=== PATIENT | female | born 1950 | race Caucasian/White ===

== ENCOUNTER 2024-12-26 13:37 | Inpatient (IN) | payer OTHER ==
[~2024-12-26] VITALS: Ht 172.7 cm; Wt 62.2 kg
[2024-12-26 13:59] VITALS: BP 155/53
[2024-12-26 14:12] LABS: HEMATOCRIT 37.5 % (37.0-47.0); MEAN CELL VOLUME 89.9 fl (81.0-99.0); MEAN CORPUSCULAR HGB 30.7 pg (27.0-31.0); MEAN CORPUSCULAR HGB CONC 34.1 g/dl (33.0-37.0); MEAN PLATELET VOLUME 9.8 fl (9.6-12.3); PLATELET COUNT AUTOMATED 283 10*3/uL (130-400); RED BLOOD COUNT 4.17 10*6/uL (4.10-5.10); RED CELL DISTRI WIDTH 12.4 % (0-14.5); WHITE BLOOD COUNT 7.4 10*3/uL (4.8-10.8)
[2024-12-26 14:17] LABS: MANUAL DIFF REFLEX YES
[2024-12-26 14:27] LABS: ACT PARTIAL THROMBO TIME 33.6 SECONDS (20.0-32.1)
[2024-12-26 14:33] LABS: ALKALINE PHOSPHATASE 58 U/L (46-116); BUN 15 mg/dl (9-23); CHLORIDE 104 mmol/L (98-107); POTASSIUM 3.4 mmol/L (3.4-5.1); SGPT/ALT 15 U/L (5-49); TOTAL PROTEIN 7.1 gm/dL (6.0-8.0)
[2024-12-26 14:38] LABS: PLATELET SUFFICIENCY NORMAL (NORMAL); TOTAL CELLS COUNTED 100 #CELLS
[2024-12-26 14:39] LABS: BURR CELLS FEW; OVALOCYTES FEW
[2024-12-26 14:48] LABS: BILIRUBIN Negative (Negative); BLOOD Negative (Negative); CLARITY Cloudy (Clear); COLOR Yellow (Yellow); GLUCOSE Negative (Negative); KETONE 2+ (Negative); LEUKO ESTERASE Negative (Negative); NITRITE Negative (Negative); PH 5.5 (4.5-8.0); SPECIFIC GRAVITY 1.025 (1.001-1.030)
[2024-12-26 14:55] LABS: BACTERIA 2+; HYALINE CAST 0-2; RBC 0-2 rbc/hpf (0-2)
[2024-12-26] MEDS ORDERED: cefTRIAXone Sodium 1 GM/10 ML SYR IV ONE (16:25)
[2024-12-26] MEDS ORDERED: ASPIRIN 325 MG TAB PO ONE (18:25)
[2024-12-26] MEDS ORDERED: Magnesium Hydroxide 30 ML UDC PO PRN (18:30)
[2024-12-26] MEDS ORDERED: Ondansetron Hydrochloride 4 MG/2 ML VIAL IV PRN (18:30)
[2024-12-26] MEDS ORDERED: ACETAMINOPHEN 650 MG SUPP R PRN (18:30)
[2024-12-26] MEDS ORDERED: BISACODYL 5 MG TAB PO PRN (18:30)
[2024-12-26] MEDS ORDERED: ACETAMINOPHEN 325 MG TAB PO PRN (18:30)
[2024-12-26] MEDS ORDERED: BISACODYL 10 MG SUPP R PRN (18:30)
[2024-12-26] MEDS ORDERED: AMLODIPINE BESYL5 MG PO (18:49)
[2024-12-26] MEDS ORDERED: LEVOTHYROXINE75 MCG PO (18:53)
[2024-12-26] MEDS ORDERED: LOSARTAN-HCTZ1 EAC2 PO (18:53)
[2024-12-26] MEDS ORDERED: ASPIRIN ADULT L81 M1 PO (18:53)
[2024-12-26] MEDS ORDERED: ATORVASTATIN CA40 M1 PO (18:54)
[2024-12-26] MEDS ORDERED: SODIUM CHLORIDE 0.9% 100 ML BAG IV ONE (19:55)
[2024-12-26] MEDS ORDERED: IOHEXOL 350 MG/ML 100 ML VIAL IV ONE ×2 (19:55→20:15)
[2024-12-26] MEDS ORDERED: SODIUM CHLORIDE 0.9% 100 ML IV ONE (20:15)
[2024-12-26 20:38] VITALS: BP 149/76
[2024-12-27] VITALS (8 sets, daily range): BP systolic 128–150; BP diastolic 67–99
[2024-12-27] MEDS ORDERED: Pantoprazole Sodium 40 MG TAB PO SCH (06:00)
[2024-12-27 06:40] LABS: ACT PARTIAL THROMBO TIME 33.3 SECONDS (20.0-32.1); BASO % 0.3 % (0.0-1.0); EOS % 0.3 % (1.0-4.0); HEMATOCRIT 36.7 % (37.0-47.0); MEAN CELL VOLUME 88.6 fl (81.0-99.0); MEAN CORPUSCULAR HGB 30.7 pg (27.0-31.0); MEAN CORPUSCULAR HGB CONC 34.6 g/dl (33.0-37.0); MONO # 0.8 10*3/uL (0.1-1.0); MONO % 10.4 % (3.0-9.0); NEUT % 76.3 % (47.0-73.0); PLATELET COUNT AUTOMATED 283 10*3/uL (130-400); RED BLOOD COUNT 4.14 10*6/uL (4.10-5.10); RED CELL DISTRI WIDTH 12.4 % (0-14.5); WHITE BLOOD COUNT 7.9 10*3/uL (4.8-10.8)
[2024-12-27 08:04] LABS: ALKALINE PHOSPHATASE 56 U/L (46-116); BUN 12 mg/dl (9-23); CHLORIDE 104 mmol/L (98-107); FREE T4 1.07 ng/dl (0.89-1.76); POTASSIUM 3.1 mmol/L (3.4-5.1); SGPT/ALT 21 U/L (5-49); TOTAL PROTEIN 7.1 gm/dL (6.0-8.0)
[2024-12-27] MEDS ORDERED: POTASSIUM CHLORIDE 20 MEQ TAB PO ONE (09:00)
[2024-12-27] MEDS ORDERED: Clopidogrel Hydrogen Sulfate 75 MG TAB PO SCH (10:00)
[2024-12-27] MEDS ORDERED: ATORVASTATIN CALCIUM 80 MG TAB PO SCH (10:00)
[2024-12-27] MEDS ORDERED: amLODIPine besylate 5 MG TAB PO SCH (10:00)
[2024-12-27] MEDS ORDERED: Enoxaparin Sodium 40 MG/0.4 ML SYR SC SCH (10:00)
[2024-12-27] MEDS ORDERED: Nicotine 21 MG PATCH T SCH (10:00)
[2024-12-27] MEDS ORDERED: Levothyroxine Sodium 75 MCG TAB PO SCH (10:00)
[2024-12-27] MEDS ORDERED: ASPIRIN ENTERIC COATED 81 MG TAB PO SCH (10:00)
[2024-12-27] MEDS ORDERED: cefTRIAXone Sodium 1 GM,IV 1 EA in SYRINGE INFUSION 10 ML IV SCH (18:00)
[2024-12-28 02:19] VITALS: BP 154/82
[2024-12-28 06:52] LABS: BUN 19 mg/dl (9-23); CHLORIDE 104 mmol/L (98-107); POTASSIUM 3.7 mmol/L (3.4-5.1)
[2024-12-28 08:00] VITALS: BP 136/48; BP 155/67
[2024-12-28 12:00] VITALS: BP 148/57
[2024-12-28] MEDS ORDERED: CLOPIDOGREL75 MG PO (12:31)
[2024-12-28] MEDS ORDERED: ATORVASTATIN CA80 M1 PO (12:31)
== END 2024-12-28 15:24 | disposition home or self-care (01) | DRG 45 ==
LOC: ED 13:37 → EDHOLD 18:15 → 5E 18:15
PROVIDERS: Internal Medicine; Student in an Organized Health Care Education/Training Program; ADMIT Internal Medicine; ATTEND Internal Medicine
DX: I63.40 Cerebral infarction due to embolism of unspecified cerebral artery (principal); I63.81 Other cerebral infarction due to occlusion or stenosis of small artery; G93.41 Metabolic encephalopathy; G81.91 Hemiplegia, unspecified affecting right dominant side; N30.00 Acute cystitis without hematuria; R26.2 Difficulty in walking, not elsewhere classified; R73.9 Hyperglycemia, unspecified; E03.9 Hypothyroidism, unspecified; I48.91 Unspecified atrial fibrillation; I10 Essential (primary) hypertension; F33.41 Major depressive disorder, recurrent, in partial remission; F17.210 Nicotine dependence, cigarettes, uncomplicated; Z90.710 Acquired absence of both cervix and uterus; Z82.49 Family history of ischemic heart disease and other diseases of the circulatory system; Z79.82 Long term (current) use of aspirin; Z79.899 Other long term (current) drug therapy; Z71.6 Tobacco abuse counseling; I66.23 Occlusion and stenosis of bilateral posterior cerebral arteries